=== PATIENT | female | born 1935 ===

== ENCOUNTER 2022-12-21 07:43 | Outpatient (CLI) | payer OTHER ==
[~2022-12-21 07:43] MED LIST: A/F PAIN RELIE500 MG PO; COZAAR50 MG PO; ECOTRIN81 MG PO; GLIMEPIRIDE4 MG PO; JANUVIA100 MG PO; OMEPRAZOLE20 MG PO; ONGLYZA5 MG PO; OSEL75CA PO; SYNTHROID50 MCG PO; ZOCOR20 MG PO; ZYNCOF 20-400120 ML PO
== END 2022-12-21 07:53 | disposition home or self-care (01) ==
LOC: RAD 07:43
PROVIDERS: ATTEND Internal Medicine Gastroenterology
DX: K57.30 Diverticulosis of large intestine without perforation or abscess without bleeding (principal); R93.3 Abnormal findings on diagnostic imaging of other parts of digestive tract; R10.9 Unspecified abdominal pain